=== PATIENT | male | born 1970 | race Caucasian/White ===

== ENCOUNTER 2016-09-23 14:42 | Observation (INO) | payer MEDICAID, OTHER ==
[~2016-09-23] VITALS: Ht 165.1 cm; Wt 70.2 kg
[2016-09-23 14:45] VITALS: BP 110/77; PULSE 74; RESP 16; TEMP 98; O2SAT 95
--- NOTE | 2016-09-23 16:32 | PD ---
HPI Chief Complaint: General Weakness Time Seen by Provider: 16:32 Travel History International Travel<30 days: Yes Contact w/Intl Traveler<30days: Yes Name of Country Traveled to: [facility] Traveled to known affect area: No History of Present Illness HPI 46-year-old male with no significant medical history presents to the emergency department for evaluation of worsening fatigue and weakness. Patient states about 2 weeks ago he had an episode of shiv red stool. He states he did not have this wire to that he did not have it again. He went to [facility] for a mission trip and returned 4 days ago. Upon return he developed a trembling sensation in his lip and a ringing in his left ear. He's had a mild-to- moderate headache and he has felt completely week. He states he does not ever feel this way. He states he feels "almost like I have been drugged." States that he has no energy. No cough or chest congestion. No fever or chills. Some episodes of nausea without vomiting but his biggest concern is how weak he feels. [facility] Social History Tobacco Use: Yes Allergies-Medications (Allergen,Severity, Reaction): Coded Allergies: No Known Allergies (Verified , 09/23/16) Reported Meds & Prescriptions Reported Meds & Active Scripts Active No Active Prescriptions or Reported Medications Review of Systems Except as stated in HPI: all other systems reviewed are Neg Physical Exam Narrative GENERAL: Completely fatigued male patient, sitting in the bed in no acute distress. SKIN: Warm and dry. HEAD: Atraumatic. Normocephalic. EYES: Pupils equal and round. Light injection of the bilateral sclera. ENT: No nasal bleeding or discharge. Mucous membranes pink and moist. NECK: Trachea midline. No JVD. CARDIOVASCULAR: Bradycardic rate and rhythm. No murmur appreciated. RESPIRATORY: No accessory muscle use. Clear to auscultation. Breath sounds equal bilaterally. GASTROINTESTINAL: Abdomen soft, non-tender, nondistended. Hepatic and splenic margins not palpable. MUSCULOSKELETAL: No obvious deformities. No clubbing. No cyanosis. No edema. NEUROLOGICAL: Awake and alert. No obvious cranial nerve deficits. Motor grossly within normal limits. Normal speech. PSYCHIATRIC: Appropriate mood and affect; insight and judgment normal. Data Data Last Documented VS Vital Signs Date Time Temp Pulse Resp B/P Pulse Ox O2 Delivery O2 Flow Rate FiO2 09/23/16 18:29 57 113/67 88 121/74 66 120/72 09/23/16 14:45 98.0 16 95 Room Air Orders Electrocardiogram (09/23/16 17:02) Complete Blood Count With Diff (09/23/16 17:02) Comprehensive Metabolic Panel (09/23/16 17:02) Prothrombin Time / Inr (Pt) (09/23/16 17:02) Act Partial Throm Time (Ptt) (09/23/16 17:02) Magnesium (Mg) (09/23/16 17:02) Ckmb (Isoenzyme) Profile (09/23/16 17:02) Troponin I (09/23/16 17:02) Urinalysis - C+S If Indicated (09/23/16 17:02) Influenzae A/B Antigen (09/23/16 17:02) Chest, Single Ap (09/23/16 17:02) Ct Brain W/O Iv Contrast(Rout) (09/23/16 17:02) Thyroid Stimulating Hormone (09/23/16 17:57) Orthostatic Vital Signs (09/23/16 17:57) Sodium Chlor 0.9% 1000 Ml Inj (Ns 1000 M (09/23/16 18:00) Sodium Chlor 0.9% 1000 Ml Inj (Ns 1000 M (09/23/16 18:00) Lorazepam Inj (Ativan Inj) (09/23/16 18:00) Meclizine (Antivert) (09/23/16 18:00) Admit Order (Ed Use Only) (09/23/16 ) ^ Saline Lock (09/23/16 19:28) Resp Oxygen Fredy C Titrat 1-4 L (09/23/16 ) ^ Notify Dr: Other (09/23/16 19:28) Sodium Chloride 0.9% Flush (Ns Flush) (09/23/16 21:00) Sodium Chloride 0.9% Flush (Ns Flush) (09/23/16 19:30) Labs Laboratory Tests Test 09/23/16 09/23/16 17:10 17:13 White Blood Count 6.1 TH/MM3 Red Blood Count 5.09 MIL/MM3 Hemoglobin 15.1 GM/DL Hematocrit 45.1 % Mean Corpuscular Volume 88.6 FL Mean Corpuscular Hemoglobin 29.6 PG Mean Corpuscular Hemoglobin 33.4 % Concent Red Cell Distribution Width 13.2 % Platelet Count 221 TH/MM3 Mean Platelet Volume 7.8 FL Neutrophils (%) (Auto) 59.3 % Lymphocytes (%) (Auto) 27.9 % Monocytes (%) (Auto) 9.4 % Eosinophils (%) (Auto) 2.7 % Basophils (%) (Auto) 0.7 % Neutrophils # (Auto) 3.6 TH/MM3 Lymphocytes # (Auto) 1.7 TH/MM3 Monocytes # (Auto) 0.6 TH/MM3 Eosinophils # (Auto) 0.2 TH/MM3 Basophils # (Auto) 0.0 TH/MM3 CBC Comment DIFF FINAL Differential Comment Prothrombin Time 10.3 SEC Prothromb Time International 0.9 RATIO Ratio Activated Partial 28.9 SEC Thromboplast Time Sodium Level 139 MEQ/L Potassium Level 4.3 MEQ/L Chloride Level 102 MEQ/L Carbon Dioxide Level 32.3 MEQ/L Anion Gap 5 MEQ/L Blood Urea Nitrogen 15 MG/DL Creatinine 0.99 MG/DL Estimat Glomerular Filtration 81 ML/MIN Rate Random Glucose 80 MG/DL Calcium Level 9.3 MG/DL Magnesium Level 2.4 MG/DL Total Bilirubin 0.2 MG/DL Aspartate Amino Transf 28 U/L (AST/SGOT) Alanine Aminotransferase 43 U/L (ALT/SGPT) Alkaline Phosphatase 118 U/L Total Creatine Kinase 93 U/L Troponin I LESS THAN 0.02 NG/ML Total Protein 7.8 GM/DL Albumin 4.2 GM/DL Thyroid Stimulating Hormone 2.170 uIU/ML 3rd Gen Urine Color YELLOW Urine Turbidity CLEAR Urine pH 6.0 Urine Specific [place] 1.022 Urine Protein NEG mg/dL Urine Glucose (UA) NEG mg/dL Urine Ketones NEG mg/dL Urine Occult Blood NEG Urine Nitrite NEG Urine Bilirubin NEG Urine Urobilinogen LESS THAN 2.0 MG/DL Urine Leukocyte Esterase TRACE Urine RBC LESS THAN 1 /hpf Urine WBC LESS THAN 1 /hpf Urine Bacteria /hpf Microscopic Urinalysis Comment CATH-CULT NOT IND MDM Medical Decision Making Medical Screen Exam Complete: Yes Emergency Medical Condition: Yes Medical Record Reviewed: Yes Differential Diagnosis Viral syndrome versus sick sinus syndrome versus symptomatic bradycardia versus electrolyte abnormality versus sepsis Narrative Course 46-year-old male presents to the emergency department for evaluation. Patient appears completely fatigued.Workup was initiated in triage. He is noted to be consistently 25 bpm on his EKG. The highest rate we got was 51 bpm on the EKG for a brief amount of time. M.D. is aware and patient is moved immediately to a medical bed. Scripts No Active Prescriptions or Reported Meds Condition: Rachel Santos Sep 23, 2016 16:32
--- NOTE | 2016-09-23 17:31 | RADRPT ---
EXAM DATE/TIME: 09/23/2016 17:22 [facility] COMPARISON: No previous studies available for comparison. INDICATIONS : Dizziness with nausea and fatigue. RADIATION DOSE: 35.76 CTDIvol (mGy) MEDICAL HISTORY : Migraine SURGICAL HISTORY : None. ENCOUNTER: Initial ACUITY: 1 day PAIN SCALE: 0/10 LOCATION: cranial TECHNIQUE: Multiple contiguous axial images were obtained of the head. Using automated exposure control and adj ustment of the mA and/or kV according to patient size, radiation dose was kept as low as reasonably a chievable to obtain optimal diagnostic quality images. FINDINGS: CEREBRUM: The ventricles are normal for age. No evidence of midline shift, mass lesion, hemorrhage or acute in farction. No extra-axial fluid collections are seen. POSTERIOR FOSSA: The cerebellum and brainstem are intact. The 4th ventricle is midline. The cerebellopontine angle i s unremarkable. EXTRACRANIAL: The visualized portion of the orbits is intact. SKULL: The calvaria is intact. No evidence of skull fracture. CONCLUSION: 1. No evidence of acute intracranial pathology. No masses are identified. Nicholas Alcantar MD on September 23, 2016 at 17:29 Board Certified Radiologist. This report was verified electronically.
[2016-09-23 17:41] LABS: BLOOD, URINE NEG (NEG); GLUCOSE,URINE NEG (NEG); KETONE, URINE NEG (NEG); NITRITE,URINE NEG (NEG); URINE COLOR YELLOW (YELLW/STRAW)
[2016-09-23 17:44] LABS: COMMENT (UR) CATH-CULT NOT IND; CULTURE IF INDICATED CATH CULTURE NOT IND
[2016-09-23 17:49] LABS: AUTOMATED NEUTROPHIL # 3.6 TH/MM3 (1.8-7.7); BASOPHIL % 0.7 % (0.0-2.0); EOSINOPHIL # 0.2 TH/MM3 (0-0.4); EOSINOPHIL % 2.7 % (0.0-4.0); HEMATOCRIT 45.1 % (39.0-51.0); HEMO FLAGS DIFF FINAL; LYMPH % 27.9 % (9.0-44.0); LYMPHOCYTE # 1.7 TH/MM3 (1.0-4.8); MEAN CELL VOLUME 88.6 FL (80.0-100.0); MEAN CORPUSCULAR HEMOGLOBIN 29.6 PG (27.0-34.0); MEAN CORPUSCULAR HGB CONC 33.4 % (32.0-36.0); MONO % 9.4 % (0.0-8.0); NEUT % 59.3 % (16.0-70.0); PLATELET COUNT 221 TH/MM3 (150-450); RED BLOOD COUNT 5.09 MIL/MM3 (4.50-5.90); RED CELL DISTRIBUTION WIDTH 13.2 % (11.6-17.2); WHITE BLOOD COUNT 6.1 TH/MM3 (4.0-11.0)
[2016-09-23] MEDS ORDERED: SODIUM CHLOR 0.9% 1000 ML INJ 1,000 ML IV ONE ×2 (18:00)
[2016-09-23] MEDS ORDERED: MECLIZINE HCL 25 MG TAB PO ONE (18:00)
[2016-09-23] MEDS ORDERED: LORazepam 2 MG/ML VIAL IV PUSH ONE (18:00)
--- NOTE | 2016-09-23 18:00 | RADRPT ---
EXAM DATE/TIME: 09/23/2016 17:44 [facility] COMPARISON: No previous studies available for comparison. INDICATIONS : Short of breath and weakness. MEDICAL HISTORY : None. SURGICAL HISTORY : None. ENCOUNTER: Initial ACUITY: 2 days PAIN SCORE: 0/10 LOCATION: Bilateral chest FINDINGS: The cardiac silhouette is enlarged in transverse diameter. The lungs are free of acute parenchymal op acity. No effusions are identified. Osseous structures are intact. CONCLUSION: Cardiomegaly. No acute cardiopulmonary disease. Nicholas Alcantar MD on September 23, 2016 at 17:58 Board Certified Radiologist. This report was verified electronically.
[2016-09-23 18:07] LABS: APTT (PATIENT) 28.9 SEC (24.3-30.1); INTERNATIONAL NORMALIZED RATIO 0.9 RATIO; PROTHROMBIN TIME - PATIENT 10.3 SEC (9.8-11.6)
[2016-09-23 18:08] LABS: ANION GAP 5 MEQ/L (5-15); AST (GOT) 28 U/L (15-37); BICARBONATE 32.3 MEQ/L (21.0-32.0); BLOOD UREA NITROGEN 15 MG/DL (7-18); CHLORIDE 102 MEQ/L (98-107); GLOMERULAR FILTRATION RATE 81 ML/MIN (>89); MAGNESIUM 2.4 MG/DL (1.5-2.5); POTASSIUM 4.3 MEQ/L (3.5-5.1); SODIUM (NA) 139 MEQ/L (136-145)
[2016-09-23 18:13] LABS: ALKALINE PHOSPHATASE 118 U/L (45-117); ALT (GPT) 43 U/L (12-78); TOTAL BILIRUBIN ADULT 0.2 MG/DL (0.2-1.0)
[2016-09-23 18:14] LABS: CREATINE KINASE 93 U/L (39-308)
--- NOTE | 2016-09-23 18:28 | PD ---
Physical Exam Date Seen by Provider: Sep 23, 2016 Data Data Last Documented VS Vital Signs Date Time Temp Pulse Resp B/P Pulse Ox O2 Delivery O2 Flow Rate FiO2 09/23/16 14:45 98.0 74 16 110/77 95 Room Air Orders Electrocardiogram (09/23/16 17:02) Complete Blood Count With Diff (09/23/16 17:02) Comprehensive Metabolic Panel (09/23/16 17:02) Prothrombin Time / Inr (Pt) (09/23/16 17:02) Act Partial Throm Time (Ptt) (09/23/16 17:02) Magnesium (Mg) (09/23/16 17:02) Ckmb (Isoenzyme) Profile (09/23/16 17:02) Troponin I (09/23/16 17:02) Urinalysis - C+S If Indicated (09/23/16 17:02) Influenzae A/B Antigen (09/23/16 17:02) Chest, Single Ap (09/23/16 17:02) Ct Brain W/O Iv Contrast(Rout) (09/23/16 17:02) Thyroid Stimulating Hormone (09/23/16 17:57) Orthostatic Vital Signs (09/23/16 17:57) Sodium Chlor 0.9% 1000 Ml Inj (Ns 1000 M (09/23/16 18:00) Sodium Chlor 0.9% 1000 Ml Inj (Ns 1000 M (09/23/16 18:00) Lorazepam Inj (Ativan Inj) (09/23/16 18:00) Meclizine (Antivert) (09/23/16 18:00) Labs Laboratory Tests Test 09/23/16 09/23/16 17:10 17:13 White Blood Count 6.1 TH/MM3 Red Blood Count 5.09 MIL/MM3 Hemoglobin 15.1 GM/DL Hematocrit 45.1 % Mean Corpuscular Volume 88.6 FL Mean Corpuscular Hemoglobin 29.6 PG Mean Corpuscular Hemoglobin 33.4 % Concent Red Cell Distribution Width 13.2 % Platelet Count 221 TH/MM3 Mean Platelet Volume 7.8 FL Neutrophils (%) (Auto) 59.3 % Lymphocytes (%) (Auto) 27.9 % Monocytes (%) (Auto) 9.4 % Eosinophils (%) (Auto) 2.7 % Basophils (%) (Auto) 0.7 % Neutrophils # (Auto) 3.6 TH/MM3 Lymphocytes # (Auto) 1.7 TH/MM3 Monocytes # (Auto) 0.6 TH/MM3 Eosinophils # (Auto) 0.2 TH/MM3 Basophils # (Auto) 0.0 TH/MM3 CBC Comment DIFF FINAL Differential Comment Prothrombin Time 10.3 SEC Prothromb Time International 0.9 RATIO Ratio Activated Partial 28.9 SEC Thromboplast Time Sodium Level 139 MEQ/L Potassium Level 4.3 MEQ/L Chloride Level 102 MEQ/L Carbon Dioxide Level 32.3 MEQ/L Anion Gap 5 MEQ/L Blood Urea Nitrogen 15 MG/DL Creatinine 0.99 MG/DL Estimat Glomerular Filtration 81 ML/MIN Rate Random Glucose 80 MG/DL Calcium Level 9.3 MG/DL Magnesium Level 2.4 MG/DL Aspartate Amino Transf 28 U/L (AST/SGOT) Albumin 4.2 GM/DL Urine Color YELLOW Urine Turbidity CLEAR Urine pH 6.0 Urine Specific [place] 1.022 Urine Protein NEG mg/dL Urine Glucose (UA) NEG mg/dL Urine Ketones NEG mg/dL Urine Occult Blood NEG Urine Nitrite NEG Urine Bilirubin NEG Urine Urobilinogen LESS THAN 2.0 MG/DL Urine Leukocyte Esterase TRACE Urine RBC LESS THAN 1 /hpf Urine WBC LESS THAN 1 /hpf Urine Bacteria /hpf Microscopic Urinalysis Comment CATH-CULT NOT IND MDM Medical Record Reviewed: Yes Supervised Visit with TRAE: Yes Interpretation(s) EKG at 1734: sinus maria g at 51bpm, qt/qtc: 413/390 Vital Signs Date Time Temp Pulse Resp B/P Pulse Ox O2 Delivery O2 Flow Rate FiO2 09/23/16 14:45 98.0 74 16 110/77 95 Room Air Differential Diagnosis vertigo, cva, dehydration, symptomatic bradycardia, sick sinus syndrome, viral illness, electrolyte abnormality, pneumonia, orthostatic hypotension Narrative Course Patient is a 46 year old male who presents to ER with c/o of vertigo. Patient reports that for the past 3 days, he has been feeling dizzy at work. 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 Reports that when he climbs up ladders and looks up to the becka - he has been feeling dizzy. Reports that symptoms have been intermittent but worse with exertion and improves when he is laying down or resting. Reports that overall he has been feeling increasingly fatigued. Reports "I'm just really tired." Patient reports that a few weeks ago, he had a productive cough which he treated with [id number] medications and symptoms have since resolved. Reports that he left for [facility] on September 12 for a missions trip and came back on September 19, 2016. Reports that he felt fine while he was in [facility] but reports that symptoms began on Tuesday. Patient with no fevers or chills, no pain or shortness of breath. Patient denies any abdominal pain, denies nausea or vomiting. Patient with complaints of dizziness with exertion and increased fatigue. Upon arrival to this ER pod, patients HR has been in the 60-70's. His EKG and she should shows sinus bradycardia at 51 bpm. Patient currently not on any medications at this time. Overall patient has a benign physical exam, he does have horizontal nystagmus, and dizzyness is only with exertion and sitting up and movements. Patient most likely with benign positional vertigo. CT of the head obtained, CT shows no evidence of acute intracranial pathology X-ray of chest shows no acute cardio pulmonary disease CBC WBC 6.1 Hemoglobin 15.1 Hematocrit 45.1 Platelets 221 Sodium 139 Potassium 4.3 Chloride 102 Carbon dioxide 32.3 BUN 15 Creatinine 0.99 Troponin less than 0.02 Total CK 93 PT 10.3 INR 0.9 PTT 28.9 UA: Trace leuk esterase, negative nitrites, less than 1 white blood cell, less than 1 red blood cell Influenza type A and B negative Patient was given IV fluids, meclizine as well as Ativan for treatment of benign positional vertigo. Patient currently on a gis analyst, will monitor his heart rate. Will reevaluate after medications are administered Scripts No Active Prescriptions or Reported Meds Condition: Stable Erika Mitchell DO Sep 23, 2016 18:28
[2016-09-23 18:29] VITALS: BP_SYST 113; BP_SYST 120; BP_SYST 121; BP_DIAS 67; BP_DIAS 72; BP_DIAS 74
[2016-09-23] MEDS ORDERED: NALOXONE HCL 0.4 MG/ML AMP IV PRN (19:30)
[2016-09-23] MEDS ORDERED: SODIUM CHLORIDE 0.9% FLUSH 5 ML FLUSH FLUSH PRN (19:30)
[2016-09-23] MEDS ORDERED: ATROPINE SULFATE 1 MG/ML VIAL IV PUSH PRN (19:30)
[2016-09-23] MEDS ORDERED: SODIUM CHLORIDE 0.9% FLUSH 5 ML FLUSH IVF PRN (19:30)
--- NOTE | 2016-09-23 19:34 | PD ---
Physical Exam Date Seen by Provider: Sep 23, 2016 Time Seen by Provider: 19:30 Narrative accepted transfer of care from Dr. Mitchell Data Data Last Documented VS Vital Signs Date Time Temp Pulse Resp B/P Pulse Ox O2 Delivery O2 Flow Rate FiO2 09/23/16 18:29 57 113/67 88 121/74 66 120/72 09/23/16 14:45 98.0 16 95 Room Air Orders Electrocardiogram (09/23/16 17:02) Complete Blood Count With Diff (09/23/16 17:02) Comprehensive Metabolic Panel (09/23/16 17:02) Prothrombin Time / Inr (Pt) (09/23/16 17:02) Act Partial Throm Time (Ptt) (09/23/16 17:02) Magnesium (Mg) (09/23/16 17:02) Ckmb (Isoenzyme) Profile (09/23/16 17:02) Troponin I (09/23/16 17:02) Urinalysis - C+S If Indicated (09/23/16 17:02) Influenzae A/B Antigen (09/23/16 17:02) Chest, Single Ap (09/23/16 17:02) Ct Brain W/O Iv Contrast(Rout) (09/23/16 17:02) Thyroid Stimulating Hormone (09/23/16 17:57) Orthostatic Vital Signs (09/23/16 17:57) Sodium Chlor 0.9% 1000 Ml Inj (Ns 1000 M (09/23/16 18:00) Sodium Chlor 0.9% 1000 Ml Inj (Ns 1000 M (09/23/16 18:00) Lorazepam Inj (Ativan Inj) (09/23/16 18:00) Meclizine (Antivert) (09/23/16 18:00) Admit Order (Ed Use Only) (09/23/16 ) ^ Saline Lock (09/23/16 19:28) Resp Oxygen Fredy C Titrat 1-4 L (09/23/16 ) ^ Notify Dr: Other (09/23/16 19:28) Sodium Chloride 0.9% Flush (Ns Flush) (09/23/16 21:00) Sodium Chloride 0.9% Flush (Ns Flush) (09/23/16 19:30) Labs Laboratory Tests Test 09/23/16 09/23/16 17:10 17:13 White Blood Count 6.1 TH/MM3 Red Blood Count 5.09 MIL/MM3 Hemoglobin 15.1 GM/DL Hematocrit 45.1 % Mean Corpuscular Volume 88.6 FL Mean Corpuscular Hemoglobin 29.6 PG Mean Corpuscular Hemoglobin 33.4 % Concent Red Cell Distribution Width 13.2 % Platelet Count 221 TH/MM3 Mean Platelet Volume 7.8 FL Neutrophils (%) (Auto) 59.3 % Lymphocytes (%) (Auto) 27.9 % Monocytes (%) (Auto) 9.4 % Eosinophils (%) (Auto) 2.7 % Basophils (%) (Auto) 0.7 % Neutrophils # (Auto) 3.6 TH/MM3 Lymphocytes # (Auto) 1.7 TH/MM3 Monocytes # (Auto) 0.6 TH/MM3 Eosinophils # (Auto) 0.2 TH/MM3 Basophils # (Auto) 0.0 TH/MM3 CBC Comment DIFF FINAL Differential Comment Prothrombin Time 10.3 SEC Prothromb Time International 0.9 RATIO Ratio Activated Partial 28.9 SEC Thromboplast Time Sodium Level 139 MEQ/L Potassium Level 4.3 MEQ/L Chloride Level 102 MEQ/L Carbon Dioxide Level 32.3 MEQ/L Anion Gap 5 MEQ/L Blood Urea Nitrogen 15 MG/DL Creatinine 0.99 MG/DL Estimat Glomerular Filtration 81 ML/MIN Rate Random Glucose 80 MG/DL Calcium Level 9.3 MG/DL Magnesium Level 2.4 MG/DL Total Bilirubin 0.2 MG/DL Aspartate Amino Transf 28 U/L (AST/SGOT) Alanine Aminotransferase 43 U/L (ALT/SGPT) Alkaline Phosphatase 118 U/L Total Creatine Kinase 93 U/L Troponin I LESS THAN 0.02 NG/ML Total Protein 7.8 GM/DL Albumin 4.2 GM/DL Thyroid Stimulating Hormone 2.170 uIU/ML 3rd Gen Urine Color YELLOW Urine Turbidity CLEAR Urine pH 6.0 Urine Specific [place] 1.022 Urine Protein NEG mg/dL Urine Glucose (UA) NEG mg/dL Urine Ketones NEG mg/dL Urine Occult Blood NEG Urine Nitrite NEG Urine Bilirubin NEG Urine Urobilinogen LESS THAN 2.0 MG/DL Urine Leukocyte Esterase TRACE Urine RBC LESS THAN 1 /hpf Urine WBC LESS THAN 1 /hpf Urine Bacteria /hpf Microscopic Urinalysis Comment CATH-CULT NOT IND MDM Medical Record Reviewed: Yes Supervised Visit with TRAE: No Differential Diagnosis please refer to Dr Mitchell's dictation Narrative Course accepted in transfer of care from Dr Mitchell for patient admission; call placed to convention services director medicine--patient with recent fatigue that has been progressively worsening patient here has normal physical exam as well as lab values however while patient was being assessed in triage patient was on a cardiac catheterization technologist and initial assessing provider noted that patient most consistently with a sinus bradycardia heart rate of 25 bpm with increased complaint of fatigue no reported nausea or vomiting at the time no reported hypotension at the time and then patient returned to a sinus bradycardia 51 which time his EKG was performed and showed no acute injury pattern change. At this time is unclear as to the source of the patient's bradycardia the recommendation will be to palpation and under observation for further assessment. It is change of shift and Dr. Mitchell is transferring patient care tome and call has been placed to medicine to arrange OBS admission with telemetry. Physician Communication Physician Communication discussed with Dr Mcbride for OBS Diagnosis Primary Impression: Bradycardia Additional Impression: Generalized weakness Admitting Information Admitting Physician Requests: Observation Scripts No Active Prescriptions or Reported Meds Condition: Stable Soraida Ching MD Sep 23, 2016 19:34
[2016-09-23 19:49] VITALS: BP 105/63; PULSE 60; RESP 18; O2SAT 100
[2016-09-23 19:50] VITALS: O2SAT 97
[2016-09-23] MEDS: SODIUM CHLORIDE 0.9% FLUSH 5 ML FLUSH FLUSH SCH (20:43)
[2016-09-23] MEDS ORDERED: SODIUM CHLORIDE 0.9% FLUSH 5 ML FLUSH IVF SCH (21:00)
[2016-09-23 21:28] VITALS: BP 114/69; PULSE 58; RESP 18; TEMP 97.7; O2SAT 97
[2016-09-23 21:45] VITALS: PULSE 61
--- NOTE | 2016-09-23 23:36 | HHI.HP ---
[facility] Service [facility] Primary Care Physician [facility] Admission Diagnosis bradycardia; generalized weakness Diagnoses: Chief Complaint: fatigue Travel History International Travel<30 Days: Yes Contact w/Intl Traveler <30 Da: Yes Name of Country Traveled to: [place] Traveled to Known Affected Are: No History of Present Illness History taken from patient and ed physician. 46 y/o patient with no medical history presents to the ED with complaints of feeling weak and dizzy for the last 3 days. Patient states for the last 3 days he has felt exhausted, dizzy, and nauseated. He denies any chest pain, sob, fever or chills. He did state he recently traveled to [facility], and returned on Tuesday. He was there for 6 days, and did not take vaccinees prior to travel. 2 weeks he stated he had bright red blood in his stool x 1. He thinks he may have hemorrhoids, and has had bleeding off and on since high school. He denies ever having a colonoscopy. While patient was in triage he sustained bradycardia, a rate of 25. When assessed at bedside HR was 65. Patient denies any history of bradycardia. Review of Systems Constitutional: COMPLAINS OF: Fatigue, Dizziness, DENIES: Fever, Chills Respiratory: DENIES: Cough, Sputum production, Shortness of breath Cardiovascular: DENIES: Chest pain, Lower Extremity Edema Gastrointestinal: COMPLAINS OF: Bloody stools, Nausea, DENIES: Constipation, Diarrhea, Vomiting Genitourinary: DENIES: Hematuria, Dysuria Musculoskeletal: DENIES: Back pain, Neck pain Integumentary: DENIES: Rash Hematologic/lymphatic: DENIES: Lymphadenopathy Immunologic/allergic: DENIES: Urticaria Neurologic: COMPLAINS OF: Headache Past Family Social History Past Medical History Patient denies any medical history Past Surgical History Patient denies any surgical history Reported Medications Reported Meds & Active Scripts Active No Active Prescriptions or Reported Medications Allergies: Coded Allergies: No Known Allergies (Verified , 09/23/16) Active Ordered Medications Current Medications Medications (Trade) Dose Ordered Sig/Cullen Route Start Time Stop Time Status Last Admin (NS Flush) 2 ml UNSCH PRN FLUSH 3/2/17 19:30 (NS Flush) 2 ml BID FLUSH 09/23/16 21:00 09/23/16 20:43 (Narcan Inj) 0.4 mg UNSCH PRN IV 09/23/16 19:30 (Atropine Inj) 0.5 mg Q5M PRN IV PUSH 09/23/16 19:30 Family History Mom: Ovarian Ca Social History Tobacco use: Denies Alcohol use: 1 beer a day Illicit drug use: Denies Physical Exam Vital Signs Vital Signs Date Time Temp Pulse Resp B/P Pulse Ox O2 Delivery O2 Flow Rate FiO2 09/23/16 21:45 61 09/23/16 21:28 97.7 58 18 114/69 97 09/23/16 19:50 97 21 09/23/16 19:49 60 18 105/63 100 Room Air 09/23/16 18:29 57 113/67 88 121/74 66 120/72 09/23/16 14:45 98.0 74 16 110/77 95 Room Air Physical Exam GENERAL: This is a well-nourished, well-developed patient, in no apparent distress. Looks extremely tired, closing his eyes while answering questions SKIN: No rashes, ecchymoses or lesions. Diaphoretic HEAD: Atraumatic. Normocephalic. EYES: Pupils equal round and reactive. ENT: Nose without bleeding, purulent drainage or septal hematoma. Airway patent. NECK: Trachea midline. No JVD or lymphadenopathy. Supple, nontender, no meningeal signs. CARDIOVASCULAR: Regular rate and rhythm without murmurs, gallops, or rubs. RESPIRATORY: Clear to auscultation. Breath sounds equal bilaterally. No wheezes , rales, or rhonchi. GASTROINTESTINAL: Abdomen soft, non-tender, nondistended. No guarding. MUSCULOSKELETAL: Extremities without clubbing, cyanosis, or edema. No calf tenderness. NEUROLOGICAL: Sleepy and alert. Motor and sensory grossly within normal limits. Normal speech. Laboratory Laboratory Tests Test 09/23/16 09/23/16 17:10 17:13 White Blood Count 6.1 Red Blood Count 5.09 Hemoglobin 15.1 Hematocrit 45.1 Mean Corpuscular Volume 88.6 Mean Corpuscular Hemoglobin 29.6 Mean Corpuscular Hemoglobin 33.4 Concent Red Cell Distribution Width 13.2 Platelet Count 221 Mean Platelet Volume 7.8 Neutrophils (%) (Auto) 59.3 Lymphocytes (%) (Auto) 27.9 Monocytes (%) (Auto) 9.4 Eosinophils (%) (Auto) 2.7 Basophils (%) (Auto) 0.7 Neutrophils # (Auto) 3.6 Lymphocytes # (Auto) 1.7 Monocytes # (Auto) 0.6 Eosinophils # (Auto) 0.2 Basophils # (Auto) 0.0 CBC Comment DIFF FINAL Differential Comment Prothrombin Time 10.3 Prothromb Time International 0.9 Ratio Activated Partial 28.9 Thromboplast Time Sodium Level 139 Potassium Level 4.3 Chloride Level 102 Carbon Dioxide Level 32.3 Anion Gap 5 Blood Urea Nitrogen 15 Creatinine 0.99 Estimat Glomerular Filtration 81 Rate Random Glucose 80 Calcium Level 9.3 Magnesium Level 2.4 Total Bilirubin 0.2 Aspartate Amino Transf 28 (AST/SGOT) Alanine Aminotransferase 43 (ALT/SGPT) Alkaline Phosphatase 118 Total Creatine Kinase 93 Troponin I LESS THAN 0.02 Total Protein 7.8 Albumin 4.2 Thyroid Stimulating Hormone 2.170 3rd Gen Urine Color YELLOW Urine Turbidity CLEAR Urine pH 6.0 Urine Specific [place] 1.022 Urine Protein NEG Urine Glucose (UA) NEG Urine Ketones NEG Urine Occult Blood NEG Urine Nitrite NEG Urine Bilirubin NEG Urine Urobilinogen LESS THAN 2.0 Urine Leukocyte Esterase TRACE Urine RBC LESS THAN 1 Urine WBC LESS THAN 1 Urine Bacteria Microscopic Urinalysis Comment CATH-CULT NOT IND Date/Time Procedure Status Source Growth 09/23/16 17:05 Influenza Types A,B Antigen (FAREED) - Final Complete Nasal Washing NEGATIVE FOR FLU A AND B ANTIGEN.... Result Diagram: 09/23/16170909/23/161709 Imaging Last Impressions Head CT 09/23/161701 Signed Impressions: Service Date/Time: September 17:22 - CONCLUSION: 1. No evidence of acute intracranial pathology. No masses are identified. Nicholas Alcantar MD Chest X-Ray 09/23/161701 Signed Impressions: Service Date/Time: September 17:44 - CONCLUSION: Cardiomegaly. No acute cardiopulmonary disease. Nicholas Alcantar MD Assessment and Plan Problem List: (1) Generalized weakness ICD Code: R53.1 Status: Acute (2) Bradycardia ICD Code: R00.1 Status: Acute (3) GI (gastrointestinal bleed) ICD Code: K92.2 Status: Acute Assessment and Plan 46 y/o with no medical history presented with: Bradycardia/Weakness- pts heart rate was as low as 25 at ER triage, witnessed by staff, sustained, though not captured on strip due to where he was in ER Labs: TSH 2.1, UA negative Images: Head CT negative EKG shows sinus rhythm -Monitor tele -Consult cardiology GI bleed, on and off -Consult GI for recommendations DVT prophylaxis: SCDs Written by Rafaela QUIROZ, acting as scribe for Dr. Mcbride on 09/23/16 at 2345. The documentation accurately reflects the work performed [id number] and decisions made by me and the physician Dr Mcbride on 09/23/16. The documentation accurately reflects the work performed [id number] by me on at 2345 Discussed Condition With Patient and ED physician Rafaela Rod Sep 23, 2016 23:36 Quang Mcbride MD Sep 24, 2016 08:52
[2016-09-24] VITALS (7 sets, daily range): BP systolic 96–135; BP diastolic 57–79; PULSE 58–77; RESP 18–20; TEMP 97.7–98.3; O2SAT 97–99
[2016-09-24 07:41] LABS: AUTOMATED NEUTROPHIL # 3.5 TH/MM3 (1.8-7.7); BASOPHIL # 0.1 TH/MM3 (0-0.2); EOSINOPHIL # 0.1 TH/MM3 (0-0.4); EOSINOPHIL % 2.2 % (0.0-4.0); HEMATOCRIT 42.4 % (39.0-51.0); HEMO FLAGS DIFF FINAL; LYMPH % 20.5 % (9.0-44.0); LYMPHOCYTE # 1.1 TH/MM3 (1.0-4.8); MEAN CELL VOLUME 88.9 FL (80.0-100.0); MEAN CORPUSCULAR HEMOGLOBIN 29.8 PG (27.0-34.0); MEAN CORPUSCULAR HGB CONC 33.5 % (32.0-36.0); MONO % 9.3 % (0.0-8.0); PLATELET COUNT 193 TH/MM3 (150-450); RED BLOOD COUNT 4.77 MIL/MM3 (4.50-5.90); RED CELL DISTRIBUTION WIDTH 13.3 % (11.6-17.2); WHITE BLOOD COUNT 5.2 TH/MM3 (4.0-11.0)
[2016-09-24 08:01] LABS: BICARBONATE 30.2 MEQ/L (21.0-32.0); POTASSIUM 4.1 MEQ/L (3.5-5.1)
[2016-09-24] MEDS: SODIUM CHLORIDE 0.9% FLUSH 5 ML FLUSH FLUSH SCH ×2 (08:26→21:00)
[2016-09-24] MEDS: ACETAMINOPHEN 325 MG TAB PO PRN ×2 (08:27→22:44)
--- NOTE | 2016-09-24 09:47 | PD.CONS ---
HPI History of Present Illness This is a 46 year old male with out significant past medical history is here for evaluation of feeling weak and dizzy for the past few days. GI have been consulted for on going rectal bleed since high school. Patient states, he always has blood on the wipe, but there was few times where the toilet is filled with blood with clots and dripping as well, last time it was 2 weeks ago. He never had a colonoscopy before, he was supposed to have one years ago, but he never went through with it. He denies family history of colon cancer, he is not on any blood thinner. He drinks 1-2 beers a day. He takes Ibuprofen as needed, but not very frequent. He reports chronic GERD for which he takes OTC antacids. He denies nausea, vomiting, hematemesis, abdomen pain, or melena. He reports chronic irregular bowel movement where he has urgency 1/2 hour after eating, and sometimes, it would be few days before he has a BM. He always attributes the bleeding to hemorrhoids issues. Currently patient in bed eating breakfast, no major GI issues. His main concerns is dizziness, cardiology on the case. Hgb is 14.2 (Angeli Quesada) PFSH Past Medical History Patient denies any medical history Past Surgical History Patient denies any surgical history (Angeli Quesada) Coded Allergies: No Known Allergies (Verified , 09/23/16) Medications Current Medications Medications (Trade) Dose Ordered Sig/Cullen Route Start Time Stop Time Status Last Admin (NS Flush) 2 ml UNSCH PRN FLUSH 09/23/16 19:30 (NS Flush) 2 ml BID FLUSH 09/23/16 21:00 09/24/16 08:26 (Narcan Inj) 0.4 mg UNSCH PRN IV 09/23/16 19:30 (Atropine Inj) 0.5 mg Q5M PRN IV PUSH 09/23/16 19:30 (Tylenol) 650 mg Q6H PRN PO 09/24/16 07:45 09/24/16 08:27 Family History Mom: Ovarian Ca Social History Tobacco use: Denies Alcohol use: 1-2 beer a day Illicit drug use: Denies (Angeli Quesada) Review of Systems Constitutional: COMPLAINS OF: Fatigue, Dizziness Endocrine: DENIES: Polyuria Eyes: DENIES: Double Vision Ears, nose, mouth, throat: DENIES: Hoarseness Respiratory: DENIES: Shortness of breath Cardiovascular: DENIES: Lower Extremity Edema Gastrointestinal: COMPLAINS OF: Bloody stools, Constipation, Diarrhea, Heartburn, DENIES: Abdominal pain, Black stools, Nausea, Vomiting, Difficulty Swallowing, Anorexia, Odynophagia, Swelling of Abdomen, Hematemesis Genitourinary: DENIES: Hematuria Musculoskeletal: DENIES: Neck pain Integumentary: DENIES: Jaundice Hematologic/lymphatic: DENIES: Bruising Immunologic/allergic: DENIES: Eczema Neurologic: DENIES: Abnormal gait Psychiatric: DENIES: Anxiety (Amawi,Angeli CONTRACTS DIRECTOR) GI Exam Vitals I&O Vital Signs Date Time Temp Pulse Resp B/P Pulse Ox O2 Delivery O2 Flow Rate FiO2 09/24/16 08:05 98.3 70 20 96/57 98 09/24/16 03:46 97.7 74 20 120/76 97 09/24/16 01:03 58 09/23/16 21:45 61 09/23/16 21:28 97.7 58 18 114/69 97 09/23/16 19:50 97 21 09/23/16 19:49 60 18 105/63 100 Room Air 09/23/16 18:29 57 113/67 88 121/74 66 120/72 09/23/16 14:45 98.0 74 16 110/77 95 Room Air Imaging Last Impressions Head CT 09/23/161701 Signed Impressions: Service Date/Time: September 17:22 - CONCLUSION: 1. No evidence of acute intracranial pathology. No masses are identified. Nicholas Alcantar MD Chest X-Ray 09/23/161701 Signed Impressions: Service Date/Time: September 17:44 - CONCLUSION: Cardiomegaly. No acute cardiopulmonary disease. Nicholas Alcantar MD Laboratory Test 09/23/16 09/23/16 09/24/16 17:10 17:13 06:49 White Blood Count 6.1 TH/MM3 5.2 TH/MM3 Red Blood Count 5.09 MIL/MM3 4.77 MIL/MM3 Hemoglobin 15.1 GM/DL 14.2 GM/DL Hematocrit 45.1 % 42.4 % Mean Corpuscular Volume 88.6 FL 88.9 FL Mean Corpuscular Hemoglobin 29.6 PG 29.8 PG Mean Corpuscular Hemoglobin 33.4 % 33.5 % Concent Red Cell Distribution Width 13.2 % 13.3 % Platelet Count 221 TH/MM3 193 TH/MM3 Mean Platelet Volume 7.8 FL 8.1 FL Neutrophils (%) (Auto) 59.3 % 67.0 % Lymphocytes (%) (Auto) 27.9 % 20.5 % Monocytes (%) (Auto) 9.4 % 9.3 % Eosinophils (%) (Auto) 2.7 % 2.2 % Basophils (%) (Auto) 0.7 % 1.0 % Neutrophils # (Auto) 3.6 TH/MM3 3.5 TH/MM3 Lymphocytes # (Auto) 1.7 TH/MM3 1.1 TH/MM3 Monocytes # (Auto) 0.6 TH/MM3 0.5 TH/MM3 Eosinophils # (Auto) 0.2 TH/MM3 0.1 TH/MM3 Basophils # (Auto) 0.0 TH/MM3 0.1 TH/MM3 CBC Comment DIFF FINAL DIFF FINAL Differential Comment Prothrombin Time 10.3 SEC Prothromb Time International 0.9 RATIO Ratio Activated Partial 28.9 SEC Thromboplast Time Sodium Level 139 MEQ/L 142 MEQ/L Potassium Level 4.3 MEQ/L 4.1 MEQ/L Chloride Level 102 MEQ/L 106 MEQ/L Carbon Dioxide Level 32.3 MEQ/L 30.2 MEQ/L Anion Gap 5 MEQ/L 6 MEQ/L Blood Urea Nitrogen 15 MG/DL 12 MG/DL Creatinine 0.99 MG/DL 0.94 MG/DL Estimat Glomerular Filtration 81 ML/MIN 86 ML/MIN Rate Random Glucose 80 MG/DL 87 MG/DL Calcium Level 9.3 MG/DL 8.9 MG/DL Magnesium Level 2.4 MG/DL Total Bilirubin 0.2 MG/DL Aspartate Amino Transf 28 U/L (AST/SGOT) Alanine Aminotransferase 43 U/L (ALT/SGPT) Alkaline Phosphatase 118 U/L Total Creatine Kinase 93 U/L Troponin I LESS THAN 0.02 NG/ML Total Protein 7.8 GM/DL Albumin 4.2 GM/DL Thyroid Stimulating Hormone 2.170 uIU/ML 3rd Gen Urine Color YELLOW Urine Turbidity CLEAR Urine pH 6.0 Urine Specific [place] 1.022 Urine Protein NEG mg/dL Urine Glucose (UA) NEG mg/dL Urine Ketones NEG mg/dL Urine Occult Blood NEG Urine Nitrite NEG Urine Bilirubin NEG Urine Urobilinogen LESS THAN 2.0 MG/DL Urine Leukocyte Esterase TRACE Urine RBC LESS THAN 1 /hpf Urine WBC LESS THAN 1 /hpf Urine Bacteria /hpf Microscopic Urinalysis Comment CATH-CULT NOT IND Date/Time Procedure Status Source Growth 09/23/16 17:05 Influenza Types A,B Antigen (FAREED) - Final Complete Nasal Washing NEGATIVE FOR FLU A AND B ANTIGEN.... Physical Examination HEENT: normocephalic; atraumatic; no jaundice. NECK: Neck is supple, no JVD, no lymphadenopathy. CHEST: Chest is clear to auscultation and percussion. CARDIAC: Regular rate and rhythm with no murmur gallop or rubs. ABDOMEN: Soft, nondistended, nontender; no hepatosplenomegaly; bowel sounds are present in all four quadrants. EXTREMITIES: No clubbing, cyanosis, or edema. SKIN: Normal; no rash; no jaundice. WELDING MACHINE OPERATOR RESISTANCE: No focal deficits; alert and oriented times three. (Angeli Quesada) Assessment and Plan Plan - Chronic rectal bleed- Patient states, he always has blood on the wipe, but there was few times where the toilet is filled with blood with clots and dripping as well, last time it was 2 weeks ago. He never had a colonoscopy before, he was supposed to have one years ago, but he never went through with it. He denies family history of colon cancer, he is not on any blood thinner. He drinks 1-2 beers a day. Takes Ibuprofen as needed. He denies nausea, vomiting , hematemesis, abdomen pain, or melena. He reports chronic irregular bowel movement where he has urgency 1/2 hour after eating, and sometimes, it would be few days before he has a BM. He always attributes the bleeding to hemorrhoids issues. Currently patient in bed eating breakfast, no major GI issues. His main concerns is dizziness, cardiology on the case. Hgb is 14.2 - Chronic GERD for which he takes OTC antacids. - Weakness/dizziness/maria g cardia- Cardiology on the case, so far, no etiology found Plan: - LISBET - Will need EGD/colonoscopy once cardiology work up is complete, hh stable, last bleeding episode was 2 weeks ago Certainly this could be done as an OP - Monitor hh - Transfuse as needed - Notify Gi for active bleed - Will add Protonix - Supportive care - Patient seen and examined by Dr. Murguia and myself and this note is written on his behalf. (Angeli Quesada) Physician Comments Patient seen and examined Agree with above Continue with current supportive care Monitor labs Endoscopy when cardiology workup is complete or if actively bleeding or as outpatient (Josef Murguia MD) Angeli Quesada Sep 24, 2016 09:47 Josef Murguia MD Sep 24, 2016 13:03
[2016-09-24] MEDS ORDERED: SODIUM CHLORID 0.9% 500 ML INJ 500 ML IV ONE (12:15)
--- NOTE | 2016-09-24 13:15 | HHI.PR ---
Subjective Remarks This is a pleasant 46 y/o Male who came to ER with Bradycardia, Generalized Weakness, Fatigue dizzy for 3 days, had bright red blood in stool x 1, patient stable asymptomatic , in his bedroom in the presence of his , also discussed with nurse Miss Paz, given one bolus of 500 ml of Normal Saline, status post equal opportunity specialist consult and recommended to be evaluated by digital asset specialist as per GI will perform EGD and Colonoscopy once cleared by Cardiology Objective Vital Signs Date Time Temp Pulse Resp B/P Pulse Ox O2 Delivery O2 Flow Rate FiO2 09/24/16 12:11 66 20 107/69 98 117/74 112/75 09/24/16 08:05 98.3 70 20 96/57 98 09/24/16 03:46 97.7 74 20 120/76 97 09/24/16 01:03 58 09/23/16 21:45 61 09/23/16 21:28 97.7 58 18 114/69 97 09/23/16 19:50 97 21 09/23/16 19:49 60 18 105/63 100 Room Air 09/23/16 18:29 57 113/67 88 121/74 66 120/72 09/23/16 14:45 98.0 74 16 110/77 95 Room Air Result Diagram: 09/24/16 0649 09/24/16 0649 Imaging Last Impressions Head CT 09/23/161701 Signed Impressions: Service Date/Time: September 17:22 - CONCLUSION: 1. No evidence of acute intracranial pathology. No masses are identified. Nicholas Alcantar MD Chest X-Ray 09/23/161701 Signed Impressions: Service Date/Time: September 17:44 - CONCLUSION: Cardiomegaly. No acute cardiopulmonary disease. Nicholas Alcantar MD Procedures No procedures performed. Other Results Laboratory Tests Test 09/23/16 09/23/16 09/24/16 17:10 17:13 06:49 Prothrombin Time 10.3 SEC Prothromb Time International 0.9 RATIO Ratio Activated Partial 28.9 SEC Thromboplast Time Magnesium Level 2.4 MG/DL Total Bilirubin 0.2 MG/DL Aspartate Amino Transf 28 U/L (AST/SGOT) Alanine Aminotransferase 43 U/L (ALT/SGPT) Alkaline Phosphatase 118 U/L Total Creatine Kinase 93 U/L Troponin I LESS THAN 0.02 NG/ML Total Protein 7.8 GM/DL Albumin 4.2 GM/DL Thyroid Stimulating Hormone 2.170 uIU/ML 3rd Gen Urine Color YELLOW Urine Turbidity CLEAR Urine pH 6.0 Urine Specific [place] 1.022 Urine Protein NEG mg/dL Urine Glucose (UA) NEG mg/dL Urine Ketones NEG mg/dL Urine Occult Blood NEG Urine Nitrite NEG Urine Bilirubin NEG Urine Urobilinogen LESS THAN 2.0 MG/DL Urine Leukocyte Esterase TRACE Urine RBC LESS THAN 1 /hpf Urine WBC LESS THAN 1 /hpf Urine Bacteria /hpf Microscopic Urinalysis Comment CATH-CULT NOT IND White Blood Count 5.2 TH/MM3 Red Blood Count 4.77 MIL/MM3 Hemoglobin 14.2 GM/DL Hematocrit 42.4 % Mean Corpuscular Volume 88.9 FL Mean Corpuscular Hemoglobin 29.8 PG Mean Corpuscular Hemoglobin 33.5 % Concent Red Cell Distribution Width 13.3 % Platelet Count 193 TH/MM3 Mean Platelet Volume 8.1 FL Neutrophils (%) (Auto) 67.0 % Lymphocytes (%) (Auto) 20.5 % Monocytes (%) (Auto) 9.3 % Eosinophils (%) (Auto) 2.2 % Basophils (%) (Auto) 1.0 % Neutrophils # (Auto) 3.5 TH/MM3 Lymphocytes # (Auto) 1.1 TH/MM3 Monocytes # (Auto) 0.5 TH/MM3 Eosinophils # (Auto) 0.1 TH/MM3 Basophils # (Auto) 0.1 TH/MM3 CBC Comment DIFF FINAL Differential Comment Sodium Level 142 MEQ/L Potassium Level 4.1 MEQ/L Chloride Level 106 MEQ/L Carbon Dioxide Level 30.2 MEQ/L Anion Gap 6 MEQ/L Blood Urea Nitrogen 12 MG/DL Creatinine 0.94 MG/DL Estimat Glomerular Filtration 86 ML/MIN Rate Random Glucose 87 MG/DL Calcium Level 8.9 MG/DL Objective Remarks GENERAL: No Distress. SKIN: No rashes, ecchymoses or lesions. Diaphoretic HEAD: Atraumatic. Normocephalic. EYES: Pupils equal round and reactive. ENT: Nose without bleeding, purulent drainage or septal hematoma. Airway patent. NECK: Trachea midline. No JVD or lymphadenopathy. Supple, nontender, no meningeal signs. CARDIOVASCULAR: Regular rate and rhythm without murmurs, gallops, or rubs. RESPIRATORY: Clear to auscultation. Breath sounds equal bilaterally. No wheezes , rales, or rhonchi. GASTROINTESTINAL: Abdomen soft, non-tender, nondistended. No guarding. MUSCULOSKELETAL: Extremities without clubbing, cyanosis, or edema. No calf tenderness. NEUROLOGICAL: Sleepy and alert. Motor and sensory grossly within normal limits. Normal speech. Medications and IVs Current Medications Medications (Trade) Dose Ordered Sig/Cullen Route Start Time Stop Time Status Last Admin (NS Flush) 2 ml UNSCH PRN FLUSH 09/23/16 19:30 (NS Flush) 2 ml BID FLUSH 09/23/16 21:00 09/24/16 08:26 (Narcan Inj) 0.4 mg UNSCH PRN IV 09/23/16 19:30 (Atropine Inj) 0.5 mg Q5M PRN IV PUSH 09/23/16 19:30 (Tylenol) 650 mg Q6H PRN PO 09/24/16 07:45 09/24/16 08:27 Pantoprazole Sodium 20 mg 20 mg DAILY PO 09/25/16 09:00 (NS 500 ml Inj) 500 ml @ 500 mls/hr BOLUS ONCE IV 09/24/16 12:15 09/24/16 13:14 09/24/16 12:29 A/P Assessment and Plan 1. Generalized weakness, with Dizziness and weakness associated with Activity, awaiting final by equal opportunity specialist seen by Doctor Dobson who asked for Doctor Salinas evaluation for digital asset specialist. 2. Bradycardia equal opportunity specialist following. digital asset specialist to follow. 3 GI Bleed as per GI specialist on PPIs and follow for EGD and Colonoscopy. GI bleed, on and off -Consult GI for recommendations DVT prophylaxis: SCDs Discharge Planning awaiting final by equal opportunity specialist and GI specialist for discharge. Alexandre Damon MD Sep 24, 2016 13:15
--- NOTE | 2016-09-24 15:00 | MB ---
cc: TORI COLE M.D. DATE OF CONSULTATION: 09/24/2016 REASON FOR CONSULTATION: Andrey is very pleasant 64 year old gentleman. CHIEF COMPLAINT He presents with chief complaint of weakness, fatigue, near syncope, coming in waves, heart rates found to be in the 20s persistently in the emergency room. He otherwise denies any chest pain, fevers, chills, cough, <<0:28>> . He is being evaluated by gastrointestinal for rectal bleeding since high school. PAST MEDICAL HISTORY/HISTORY OF PRESENT ILLNESS: ALLERGIES None. SOCIAL HISTORY He drinks one to two beers per day. MEDICATIONS: Pantoprazole 20 daily PHYSICAL EXAMINATION VITAL SIGNS: Pulse ranging between 58 and 74, blood pressure 96/57, temperature 98.3, respiratory 20. IN GENERAL: He is alert and oriented times three, in no acute distress. NECK: The neck is supple. No jugular venous distention, no bruits. CARDIOVASCULAR SYSTEM: S1, S2, No murmurs, rubs or gallops. LUNGS: Clear to auscultation bilaterally. ABDOMEN: The abdomen is soft, nontender, nondistended with positive bowel sounds. EXTREMITIES: Lower extremity edema. LABORATORY DATA White count 5.2 hemoglobin 14.2, hematocrit 42.4, platelet count 193, sodium 42, potassium 4.1, chloride 106, bicarb 30.2, BUN, total creatinine 0.94 troponin less than 0.2. TSH is 2.170, INR 0.9. CT HEAD There is no evidence of acute intracranial pathology. No masses are identified. Chest x-ray Cardiomegaly, no acute cardiopulmonary disease. EKG shows sinus bradycardia at 51 beats per minute. FINAL DIAGNOSIS Symptomatic bradycardia. GI bleeding. DISCUSSION At this point and time we will keep the patient NPO I will contact Dr. Salinas for further evaluation and management of symptomatic bradycardia. MD MICHAEL Pereira/dereje /2:12 PM /2:33 PM
--- NOTE | 2016-09-24 23:27 | EKG ---
Date Performed: 09/23/2016 Time Performed: 17:34:17 PTAGE: 46 years EKG: SINUS BRADYCARDIA BORDERLINE ECG INTERPRETATION BASED ON A DEFAULT AGE OF 40 YEARS NO PREVIOUS TRACING DOCTOR: Kevyn Salinas Interpretating Date/Time 09/24/2016 23:25:28
[2016-09-25] MEDS ORDERED: KETOROLAC TROMETHAMINE 30 MG/ML (IVP) VIAL IV PUSH ONE (00:15)
[2016-09-25 08:20] VITALS: BP 109/72; PULSE 70; RESP 18; TEMP 97.7; O2SAT 98
[2016-09-25] MEDS: SODIUM CHLORIDE 0.9% FLUSH 5 ML FLUSH FLUSH SCH ×2 (09:00→10:36)
[2016-09-25] MEDS: PANTOPRAZOLE SOD 20 MG DELAYED RELEASE TAB PO SCH ×2 (09:00→10:36)
--- NOTE | 2016-09-25 09:57 | HHI.GIFU ---
Subjective Remarks "I haven't had bleeding in 3 weeks, I didn't come here for my bleeding, I came here because of my heart and you are not even addressing that." Pt denies any GI issues. States he was having some BRBPR, but has not had any for 3 weeks. C /O sinus congestion. (Gabi Lara) Objective Vitals I&O Vital Signs Date Time Temp Pulse Resp B/P Pulse Ox O2 Delivery O2 Flow Rate FiO2 09/25/16 08:20 97.7 70 18 109/72 98 09/24/16 23:51 16 09/24/16 21:37 66 09/24/16 19:31 98.2 73 18 126/79 98 09/24/16 16:16 77 20 135/75 99 09/24/16 12:11 66 20 107/69 98 117/74 112/75 I/O 09/24/16 09/24/16 09/24/16 09/25/16 09/25/16 09/25/16 07:00 15:00 23:00 07:00 15:00 23:00 Intake Total 502 ml Balance 502 ml Intake IV Total 502 ml # Voids 1 3 2 Laboratory Date/Time Procedure Status Source Growth 09/23/16 17:05 Influenza Types A,B Antigen (FAREED) - Final Complete Nasal Washing NEGATIVE FOR FLU A AND B ANTIGEN.... Imaging Last Impressions Head CT 09/23/161701 Signed Impressions: Service Date/Time: September 17:22 - CONCLUSION: 1. No evidence of acute intracranial pathology. No masses are identified. Nicholas Alcantar MD Chest X-Ray 09/23/161701 Signed Impressions: Service Date/Time: September 17:44 - CONCLUSION: Cardiomegaly. No acute cardiopulmonary disease. Nicholas Alcantar MD Physical Exam HEENT: Normocephalic; atraumatic; no jaundice. CHEST: CTA CARDIAC: RRR ABDOMEN: Soft, nondistended, nontender; no hepatosplenomegaly; bowel sounds are present in all four quadrants. EXTREMITIES: No clubbing, cyanosis, or edema. SKIN: Normal; no rash; no jaundice. BOOK COVERER: No focal deficits; alert and oriented times three. (Gabi Lara) Assessment and Plan Plan - Chronic BRBPR. Pt has long hx of BRBPR, scant amount when he wipes, occasionally more. He has not had this for 3 weeks. He never had a colonoscopy before. HH stable. States he would like to pursue colonoscopy as outpatient once his other symptoms are addressed. - Chronic GERD for which he takes OTC antacids. - Symptomatic bradycardia with weakness/dizziness. Cardiology following, s/p evaluation by EP. Plan is for patient to FU with Dr. Salinas as outpatient. Plan: - LISBET - PPI - Monitor HH - Supportive care - Will need EGD/colonoscopy once cardiology work up is complete, Pt would like to have this done as outpatient - Patient seen and examined by Dr. Murguia and myself and this note is written on his behalf. (Gabi Lara) Physician Comments Patient seen and examined Agree with above Continue with current supportive care Monitor labs Patient follow-up with GI as an outpatient for outpatient procedures GI will sign off (Josef Murguia MD) Gabi Lara Sep 25, 2016 09:57 Josef Murguia MD Sep 25, 2016 13:44
[2016-09-25 10:30] VITALS: PULSE 62
[2016-09-25 11:09] VITALS: BP 124/63; PULSE 76; RESP 20; TEMP 97.5; O2SAT 98
--- NOTE | 2016-09-25 14:08 | HHI.PR ---
Subjective Remarks This is a pleasant 46 y/o Male who came to ER with Bradycardia, Generalized Weakness, Fatigue dizzy for 3 days, had bright red blood in stool x 1 three weeks ago and also he states and his that he had this recurrent issue in the past. followed by software quality assurance specialist he is asking for Stress test to be performed due to that he has this symptomatology only when he gets up and starts working and walking and climbing stares also he states that he wants to know all his laboratory and tests until now he has also some sinus congestion not evident on CT Brain, but asked for CT of sinus and started on anti histamine medicine. No further management by software quality assurance specialist recommended to follow as outpatient, I took the time to Explain to the patient and then in the presence of his and two other relatives all the tests and asked for Physical Therapy evaluation. More than 30 minutes spent in this explanation, at this time came to visit him software quality assurance specialist Doctor Bronson Objective Vital Signs Date Time Temp Pulse Resp B/P Pulse Ox O2 Delivery O2 Flow Rate FiO2 09/25/16 11:09 97.5 76 20 124/63 98 09/25/16 10:30 62 09/25/16 08:20 97.7 70 18 109/72 98 09/24/16 23:51 16 09/24/16 21:37 66 09/24/16 19:31 98.2 73 18 126/79 98 09/24/16 16:16 77 20 135/75 99 I/O 09/24/16 09/24/16 09/24/16 09/25/16 09/25/16 09/25/16 07:00 15:00 23:00 07:00 15:00 23:00 Intake Total 502 ml Balance 502 ml Intake IV Total 502 ml # Voids 1 3 2 Result Diagram: 09/24/16 0649 09/24/16 0649 Imaging Last Impressions Head CT 09/23/161701 Signed Impressions: Service Date/Time: September 17:22 - CONCLUSION: 1. No evidence of acute intracranial pathology. No masses are identified. Nicholas Alcantar MD Chest X-Ray 09/23/161701 Signed Impressions: Service Date/Time: September 17:44 - CONCLUSION: Cardiomegaly. No acute cardiopulmonary disease. Nicholas Alcantar MD Procedures No procedures performed. Other Results Laboratory Tests Test 09/23/16 09/23/16 09/24/16 17:10 17:13 06:49 Prothrombin Time 10.3 SEC Prothromb Time International 0.9 RATIO Ratio Activated Partial 28.9 SEC Thromboplast Time Magnesium Level 2.4 MG/DL Total Bilirubin 0.2 MG/DL Aspartate Amino Transf 28 U/L (AST/SGOT) Alanine Aminotransferase 43 U/L (ALT/SGPT) Alkaline Phosphatase 118 U/L Total Creatine Kinase 93 U/L Troponin I LESS THAN 0.02 NG/ML Total Protein 7.8 GM/DL Albumin 4.2 GM/DL Thyroid Stimulating Hormone 2.170 uIU/ML 3rd Gen Urine Color YELLOW Urine Turbidity CLEAR Urine pH 6.0 Urine Specific Dora 1.022 Urine Protein NEG mg/dL Urine Glucose (UA) NEG mg/dL Urine Ketones NEG mg/dL Urine Occult Blood NEG Urine Nitrite NEG Urine Bilirubin NEG Urine Urobilinogen LESS THAN 2.0 MG/DL Urine Leukocyte Esterase TRACE Urine RBC LESS THAN 1 /hpf Urine WBC LESS THAN 1 /hpf Urine Bacteria /hpf Microscopic Urinalysis Comment CATH-CULT NOT IND White Blood Count 5.2 TH/MM3 Red Blood Count 4.77 MIL/MM3 Hemoglobin 14.2 GM/DL Hematocrit 42.4 % Mean Corpuscular Volume 88.9 FL Mean Corpuscular Hemoglobin 29.8 PG Mean Corpuscular Hemoglobin 33.5 % Concent Red Cell Distribution Width 13.3 % Platelet Count 193 TH/MM3 Mean Platelet Volume 8.1 FL Neutrophils (%) (Auto) 67.0 % Lymphocytes (%) (Auto) 20.5 % Monocytes (%) (Auto) 9.3 % Eosinophils (%) (Auto) 2.2 % Basophils (%) (Auto) 1.0 % Neutrophils # (Auto) 3.5 TH/MM3 Lymphocytes # (Auto) 1.1 TH/MM3 Monocytes # (Auto) 0.5 TH/MM3 Eosinophils # (Auto) 0.1 TH/MM3 Basophils # (Auto) 0.1 TH/MM3 CBC Comment DIFF FINAL Differential Comment Sodium Level 142 MEQ/L Potassium Level 4.1 MEQ/L Chloride Level 106 MEQ/L Carbon Dioxide Level 30.2 MEQ/L Anion Gap 6 MEQ/L Blood Urea Nitrogen 12 MG/DL Creatinine 0.94 MG/DL Estimat Glomerular Filtration 86 ML/MIN Rate Random Glucose 87 MG/DL Calcium Level 8.9 MG/DL Objective Remarks GENERAL: No Distress. SKIN: No rashes, ecchymoses or lesions. Diaphoretic HEAD: Atraumatic. Normocephalic. EYES: Pupils equal round and reactive. ENT: Nose without bleeding, purulent drainage or septal hematoma. Airway patent. NECK: Trachea midline. No JVD or lymphadenopathy. Supple, nontender, no meningeal signs. CARDIOVASCULAR: Regular rate and rhythm without murmurs, gallops, or rubs. RESPIRATORY: Clear to auscultation. Breath sounds equal bilaterally. No wheezes , rales, or rhonchi. GASTROINTESTINAL: Abdomen soft, non-tender, nondistended. No guarding. MUSCULOSKELETAL: Extremities without clubbing, cyanosis, or edema. No calf tenderness. NEUROLOGICAL: Sleepy and alert. Motor and sensory grossly within normal limits. Normal speech. Medications and IVs Current Medications Medications (Trade) Dose Ordered Sig/Cullen Route Start Time Stop Time Status Last Admin (NS Flush) 2 ml UNSCH PRN FLUSH 09/23/16 19:30 (NS Flush) 2 ml BID FLUSH 09/23/16 21:00 09/24/16 08:26 (Narcan Inj) 0.4 mg UNSCH PRN IV 09/23/16 19:30 (Atropine Inj) 0.5 mg Q5M PRN IV PUSH 09/23/16 19:30 (Tylenol) 650 mg Q6H PRN PO 09/24/16 07:45 09/24/16 22:44 (Protonix) 20 mg DAILY PO 09/25/16 09:00 A/P Assessment and Plan 1. Generalized weakness, with Dizziness and weakness associated with Activity, awaiting final by software quality assurance specialist seen by Doctor Dobson who asked for Doctor Salinas evaluation for bilingual customer service specialist. at this time Doctor Faustino Dobson in to see the patient the patient is asking for Stress Test will leave that decision to software quality assurance specialist, also asked for Physical therapy evaluation. 2. Bradycardia software quality assurance specialist following, to follow bilingual customer service specialist as outpatient for Holter monitoring. 3 GI Bleed as per GI specialist on PPIs and follow for EGD and Colonoscopy. 4 Sinus Allergy started on Claritin and Fluticasone. asked for sinus CT GI bleed, on and off More than 30 minutes spent explaining to the patient, and his other two relatives in the room about his condition patient permitted them to stay in the room while I was giving explanation and was complaining about not been performed an Stress test, software quality assurance specialist Doctor Faustino Dobson In to see patient at this time. DVT prophylaxis: SCDs Discharge Planning awaiting final by software quality assurance specialist and GI specialist for discharge. PT evaluation for discharge. Alexandre Damon MD Sep 25, 2016 14:08
[2016-09-25] MEDS ORDERED: LORATADINE 10 MG TAB PO SCH (14:15)
[2016-09-25] MEDS ORDERED: FLUTICASONE PROPIONATE 50 MCG/ACT 16 GM NASAL SPRAY NASAL SCH (14:15)
--- NOTE | 2016-09-25 15:10 | PD.CARD.PN ---
Subjective Subjective Remarks patient expresses concern @ symptomatic bradycardia while working Objective Vital Signs / I&O Vital Signs Date Time Temp Pulse Resp B/P Pulse Ox O2 Delivery O2 Flow Rate FiO2 09/25/16 11:09 97.5 76 20 124/63 98 09/25/16 10:30 62 09/25/16 08:20 97.7 70 18 109/72 98 09/24/16 23:51 16 09/24/16 21:37 66 09/24/16 19:31 98.2 73 18 126/79 98 09/24/16 16:16 77 20 135/75 99 I/O 09/24/16 09/24/16 09/24/16 09/25/16 09/25/16 09/25/16 07:00 15:00 23:00 07:00 15:00 23:00 Intake Total 502 ml Balance 502 ml Intake IV Total 502 ml # Voids 1 3 2 Laboratory GENERAL: SKIN: Warm and dry. HEAD: Normocephalic. EYES: No scleral icterus. No injection or drainage. NECK: Supple, trachea midline. No JVD or lymphadenopathy. CARDIOVASCULAR: Regular rate and rhythm without murmurs, gallops, or rubs. RESPIRATORY: Breath sounds equal bilaterally. No accessory muscle use. GASTROINTESTINAL: Abdomen soft, non-tender, nondistended. MUSCULOSKELETAL: No cyanosis, or edema. BACK: Nontender without obvious deformity. No CVA tenderness. Assessment and Plan Problem List: (1) Bradycardia (2) Generalized weakness (3) GI (gastrointestinal bleed) Assessment and Plan 1.) Bradycardia - management per Dr Rita Dobson,Faustino Ingram MD Sep 25, 2016 15:10
--- NOTE | 2016-09-25 15:50 | RADRPT ---
EXAM DATE/TIME: 09/25/2016 15:35 [facility] COMPARISON: CT BRAIN W/O CONTRAST, September 23, 2016, 17:22. INDICATIONS : Cephalgia. RADIATION DOSE: 10.65 CTDIvol (mGy) MEDICAL HISTORY : Migraine. SURGICAL HISTORY : None. ENCOUNTER: Initial ACUITY: 1 day PAIN SCORE: 8/10 LOCATION: Bilateral sinus. TECHNIQUE: Volumetric scanning of the paranasal sinuses was performed. Using automated exposure control and adj ustment of the mA and/or kV according to patient size, radiation dose was kept as low as reasonably a chievable to obtain optimal diagnostic quality images. FINDINGS: MAXILLARY SINUSES: Normal. No significant mucosal thickening or fluid. Infundibula are patent. No anomalous inferior orbital ethmoid (Alondra) air cells. ETHMOID SINUSES: Normal. No significant mucosal thickening or fluid. Fovea ethmoidal and lamina papyracea are symmet antoni and intact. SPHENOID SINUSES: Normal. No significant mucosal thickening or fluid. Sphenoethmoidal recesses are patent. No bony d ehiscence. FRONTAL SINUSES: Normal. No significant mucosal thickening or fluid. Frontal recesses are patent. No anomalous fron kellie air cells. NASAL FOSSA: Normal. No septal perforation or deviation. No jaciel bullosa or paradoxical turbinates are identifie d. OTHER: Normal. Limited views of the skull base and orbits are unremarkable. CONCLUSION: Normal examination. Kemar Franklin MD on September 25, 2016 at 15:48 Board Certified Radiologist. This report was verified electronically.
[2016-09-25 16:19] VITALS: BP 112/81; PULSE 75; O2SAT 99
--- NOTE | 2016-09-25 18:20 | HHI.DS ---
Discharge Summary Admission Date Sep 23, 2016 at 19:29 Discharge Date: Sep 25, 2016 Admitting Diagnosis bradycardia; generalized weakness (1) Generalized weakness ICD Code: R53.1 (2) Bradycardia ICD Code: R00.1 Diagnosis: Principal (3) GI (gastrointestinal bleed) ICD Code: K92.2 Diagnosis: Principal Procedures No procedures performed to the patient Brief History - From Admission History taken from patient and ed physician. 46 y/o patient with no medical history presents to the ED with complaints of feeling weak and dizzy for the last 3 days. Patient states for the last 3 days he has felt exhausted, dizzy, and nauseated. He denies any chest pain, sob, fever or chills. He did state he recently traveled to [facility], and returned on Tuesday. He was there for 6 days, and did not take vaccinees prior to travel. 2 weeks he stated he had bright red blood in his stool x 1. He thinks he may have hemorrhoids, and has had bleeding off and on since high school. He denies ever having a colonoscopy. While patient was in triage he sustained bradycardia, a rate of 25. When assessed at bedside HR was 65. Patient denies any history of bradycardia. CBC/BMP: 09/24/16 0649 09/24/16 0649 Significant Findings Laboratory Tests Test 09/23/16 09/23/16 09/24/16 17:10 17:13 06:49 Monocytes (%) (Auto) 9.4 % (0.0-8.0) 9.3 % (0.0-8.0) Carbon Dioxide Level 32.3 MEQ/L (21.0-32.0) Estimat Glomerular Filtration 81 ML/MIN (>89) 86 ML/MIN (>89) Rate Alkaline Phosphatase 118 U/L (45-117) Troponin I LESS THAN 0.02 NG/ML (0.02-0.05) Urine Leukocyte Esterase TRACE (NEG) Imaging Last Impressions Sinuses CT 09/25/16 0000 Signed Impressions: Service Date/Time: Sunday, September 25, 2016 15:35 - CONCLUSION: Normal examination. Kemar Franklin MD Head CT 09/23/161701 Signed Impressions: Service Date/Time: September 17:22 - CONCLUSION: 1. No evidence of acute intracranial pathology. No masses are identified. Nicholas Alcantar MD Chest X-Ray 09/23/161701 Signed Impressions: Service Date/Time: September 17:44 - CONCLUSION: Cardiomegaly. No acute cardiopulmonary disease. Nicholas Alcantar MD PE at Discharge GENERAL: No Distress. SKIN: No rashes, ecchymoses or lesions. Diaphoretic HEAD: Atraumatic. Normocephalic. EYES: Pupils equal round and reactive. ENT: Nose without bleeding, purulent drainage or septal hematoma. Airway patent. NECK: Trachea midline. No JVD or lymphadenopathy. Supple, nontender, no meningeal signs. CARDIOVASCULAR: Regular rate and rhythm without murmurs, gallops, or rubs. RESPIRATORY: Clear to auscultation. Breath sounds equal bilaterally. No wheezes , rales, or rhonchi. GASTROINTESTINAL: Abdomen soft, non-tender, nondistended. No guarding. MUSCULOSKELETAL: Extremities without clubbing, cyanosis, or edema. No calf tenderness. NEUROLOGICAL: Sleepy and alert. Motor and sensory grossly within normal limits. Normal speech. Hospital Course This is a pleasant 46 y/o Male who came to ER with Bradycardia, Generalized Weakness, Fatigue dizzy for 3 days, had bright red blood in stool x 1 three weeks ago and also he states and his that he had this recurrent issue in the past. followed by industry segment specialist he is asking for Stress test to be performed due to that he has this symptomatology only when he gets up and starts working and walking and climbing stares also he states that he wants to know all his laboratory and tests until now he has also some sinus congestion not evident on CT Brain, but asked for CT of sinus and started on anti histamine medicine. No further management by industry segment specialist recommended to follow as outpatient, I took the time to Explain to the patient and then in the presence of his and two other relatives all the tests and asked for Physical Therapy evaluation. More than 30 minutes spent in this explanation, at this time came to visit him industry segment specialist Doctor Bronson Pt Condition on Discharge: Good Discharge Disposition: Discharge Home Discharge Time: <= 30 minutes Discharge Instructions DIET: Follow Instructions for: As Tolerated, No Restrictions Speech Therapy-Diet Recommends: Regular Activities you can perform: Regular-No Restrictions Alexandre Damon MD Sep 25, 2016 18:20
== END 2016-09-25 19:47 | disposition home or self-care (01) ==
LOC: NEPC 14:42 → NEDA 19:29 → NEPFCDU 21:08
PROVIDERS: ADMIT Internal Medicine; ATTEND Internal Medicine
DX: R00.1 Bradycardia, unspecified (principal); R53.1 Weakness; R53.83 Other fatigue; R51 Headache; K92.1 Melena; K21.9 Gastro-esophageal reflux disease without esophagitis
CPT/HCPCS: 70450; 70486; 71010; 80048; 80053; 81001; 82550; 83735; 84443; 84484; 85025; 85610; 85730; 87804; 93005; 96361; 96374; 97162; 99285; G0378; G8987; G8988; J2060; J7030; J7040